=== PATIENT | male | born 1985 | race African-American/Black ===

== ENCOUNTER 2017-05-02 17:02 | Emergency (ER) | payer OTHER ==
[~2017-05-02] VITALS: Ht 165.1 cm; Wt 74.8 kg
--- NOTE | ~2017-05-02 | CR126 ---
[facility] A Service of [facility] RADIOLOGY TEXT RESULTS PATIENT: CHARITY MEAD LOCATION: [facility] : 83 UNIT #: [id number] AGE: [address]: Nora Stacy APRN SEX: M ORDER DR: [id number] [place], [place] [address] [id number] MR#: [id number] Acc #: [id number] NAME: CHARITY MEAD : 1985 SEX: M STUDY DATE/TIME: 05/02/2017 17:38 UNIT: CFTX ROOM: STUDY DESCRIPTION: CR Foot Complete Min 3 View Lt Attending Physician: Nora Stacy A.P.R.N. Ordering Physician: Ed Corey Sood M.D. Primary Care Physician: No Primary Care Physician MEDICAL IMAGING REPORT This report is preliminary unless electronic signature is present EXAM Left foot, 05/02/2017. HISTORY Fell down the steps and has pain and swelling of the left foot. Pain and swelling ever since today. TECHNIQUE Three views. COMPARISON No comparisons. FINDINGS The examination is negative. There is no acute fracture or retained opaque foreign body. Soft tissues unremarkable. IMPRESSION Negative. Dictated by... Long King M.D. THIS IS AN ELECTRONICALLY VERIFIED REPORT Long King M.D. at 05/03/2017 2:19 PM BLANQUITA/deonte TD: 05/03/2017 09:09 JOB #: [id number] [facility] A Service of [facility] RADIOLOGY TEXT RESULTS PATIENT: CHARITY MEAD LOCATION: [facility] : 83 UNIT #: [id number] AGE: [address]: Nora Stacy APRN SEX: M ORDER DR: MEDICAL IMAGING REPORT Page 1 of 1 COPY
== END 2017-05-02 18:23 | disposition home or self-care (01) ==
LOC: CFTX 17:02 → CED 17:02 → CFTX 18:14
DX: S93.602A Unspecified sprain of left foot, initial encounter (principal); F17.210 Nicotine dependence, cigarettes, uncomplicated; W18.39XA Other fall on same level, initial encounter; Y92.098 Other place in other non-institutional residence as the place of occurrence of the external cause
CPT/HCPCS: 29540; 73630; 99283